=== PATIENT | female | born 1985 | race Caucasian/White ===

== ENCOUNTER 2016-07-25 16:08 | Emergency (ER) | payer OTHER ==
[2016-07-25 16:27] VITALS: BP 118/74; PULSE 101; TEMP 98.4; BMI 36.8
--- NOTE | 2016-07-25 16:32 | PDOC ---
History of Present Illness - General Chief Complaint: Pain Stated Complaint: LT FOOT BURNING SENSATION/PAIN Time Seen by Provider: 07/25/16 16:31 History Source: Patient Exam Limitations: No Limitations - History of Present Illness Initial Comments: CHIEF COMPLAINT: 30 y/o female patient with no significant PMH c/o left foot pain for the past 2 years ago. HISTORY OF PRESENT ILLNESS: The patient states her pain hurts mostly on her heel and arch, and it's the worst when she first steps down in the morning. A doctor used high frequency ultrasound a few years ago and it helped but she hasn 't been able to go back. She denies new injury but does admit she is on her feet a lot. Vital signs on arrival are within normal limits. REVIEW OF SYSTEMS: GENERAL/CONSTITUTIONAL: No fever/chills. No weakness. No weight change. HEAD, EYES, EARS, NOSE AND THROAT: No change in vision. No ear pain or discharge. No sore throat. MUSCULOSKELETAL: +left heel and arch pain. No neck or back pain. SKIN: No rash or easy bruising. NEUROLOGIC: No headache, vertigo, loss of consciousness, or loss of sensation. PHYSICAL EXAM: VITAL_SIGNS: within normal limits GENERAL_APPEARANCE: alert, cooperative, no obvious discomfort. MENTAL_STATUS: speech clear, oriented X 3, responds appropriately to questions. NEURO: motor intact and sensory intact in injured extremity. EXTREMITIES: 2+ dorsalis pedis pulse in left foot. Pain with palpation of bottom, medial border of left foot and along entire arch, consistent with plantar fasciitis. SKIN: warm, dry, good color. Past History - Past Medical History Allergies/Adverse Reactions: Allergies Allergy/AdvReac Type Severity Reaction Status Date / Time codeine Allergy Intermediate Vomiting Verified 07/25/16 16:24 Home Medications: Ambulatory Orders Vit No.130/Iron/FA [ Tablet] 1 each PO HS 10/18/15 Keflex 500 tablet PO BID 10/25/15 Ferrous Sulfate [Feosol] 325 mg PO BID #60 tablet 10/28/15 Ibuprofen [Motrin -] 600 mg PO QID PRN #28 tablet 10/28/15 Asthma: No Cancer: No Cardiac Disorders: No Diabetes: No HTN: No Seizures: No Thyroid Disease: No Other medical history: DENIES. - Psycho/Social/Smoking Cessation Hx Anxiety: No Suicidal Ideation: No Smoking History: Never smoked Have you smoked in the past 12 months: No Hx Alcohol Use: No Drug/Substance Use Hx: No Hx Substance Use Treatment: No *Physical Exam - Vital Signs Last Vital Signs Temp Pulse Resp BP Pulse Ox 98.4 F 101 H 19 118/74 97 07/25/16 16:25 07/25/16 16:25 07/25/16 16:25 07/25/16 16:25 07/25/16 16:25 Medical Decision Making - Medical Decision Making A/P: 30 y/o afebrile female with left plantar fasciitis. Suggested motrin for pain and rolling her foot along a frozen water bottle. Provided a referral to a closer orthopedic doctor and suggested she return for repeat high powered ultrasound treatments to her foot. The patient verbalizes understanding of all instructions, has no further questions and is awaiting discharge. *DC/Admit/Observation/Transfer Diagnosis at time of Disposition: Plantar fasciitis of left foot - Discharge Dispostion Disposition: HOME Condition at time of disposition: Good - Referrals Referrals: Jose Escalera MD [Staff Physician] - - Patient Instructions Printed Discharge Instructions: DI for Plantar Fasciitis Additional Instructions: Discharge Instructions: -Take Motrin every 6 hours for pain -Roll your foot on a frozen water bottle -Follow up with Dr. Escalera if symptoms persist
[2016-07-25] MEDS ORDERED: IBUPROFEN 600 MG TABLET (FP) PO ONE ×2 (17:00→17:05)
== END 2016-07-25 17:13 | disposition home or self-care (01) ==
LOC: JERFT 16:08
DX: M72.2 Plantar fascial fibromatosis (principal)
CPT/HCPCS: 84703; 99281-25

== ENCOUNTER 2016-09-18 15:03 | Emergency (ER) | payer OTHER ==
[2016-09-18 15:07] VITALS: BP 121/75; PULSE 88; TEMP 98; BMI 35.9
[2016-09-18] MEDS ORDERED: SODIUM CHLORIDE 0.9% 1000 ML INFUS.BAG IV ONE (15:28)
[2016-09-18] MEDS ORDERED: KETOROLAC TROMETHAMINE 30 MG/1 ML VIAL IVPUSH ONE (15:28)
[2016-09-18] MEDS ORDERED: METOCLOPRAMIDE HCL INJECTION 10 MG/2 ML VIAL IVPUSH ONE (15:28)
[2016-09-18] MEDS ORDERED: METOCLOPRAMIDE HCL INJECTION 10 MG/2 ML VIAL ONE (15:54)
[2016-09-18] MEDS ORDERED: diphenhydrAMINE HCL 25 MG CAPSULE (FP) PO ONE (15:55)
[2016-09-18] MEDS ORDERED: KETOROLAC TROMETHAMINE 30 MG/1 ML VIAL ONE (15:56)
--- NOTE | 2016-09-18 16:10 | PDOC ---
History of Present Illness - General Chief Complaint: Migraine Headache Stated Complaint: HEADACHES/NAUSIA Time Seen by Provider: 09/18/16 15:19 - History of Present Illness Initial Comments: 09/18/16 15:29 CHIEF COMPLAINT: headache HISTORY OF PRESENT ILLNESS: 30-year-old female with of migraines presents to ED with headache since this morning. Patient reports that she felt a gradual onset of her headache starting at 6:30 in the morning and has progressed becoming worse.. Patient reports that she is nauseous and has vomited 6 times. Patient reports the headache is across the front of her head and the back of her neck. Patient denies that this is the worst headache of her life and states it feels just like her previous migraines. No recent travel or sick contacts. PAST MEDICAL HISTORY: migraines FAMILY HISTORY: Denies SOCIAL HISTORY: Denies tobacco, alcohol, illicit drug use. SURGICAL HISTORY: Denies ALLERGIES: codeine REVIEW OF SYSTEMS General/Constitutional: Denies fever or chills. HEENT: Denies photophobia, phonophobia. Denies change in vision. Denies ear pain or discharge. Denies sore throat. Cardiovascular: Denies chest pain or shortness of breath. Respiratory: Denies cough, wheezing, or hemoptysis. Gastrointestinal: Nausea and vomiting today. Denies diarrhea or constipation. Musculoskeletal: Denies joint or muscle swelling or pain. Denies neck or back pain. Neurologic: Headache since this am. Denies vertigo, loss of consciousness, or loss of sensation. PHYSICAL EXAM General Appearance: Well-appearing, appropriately dressed. No apparent distress. HEENT: EOMI, PERRLA. Neck: Supple. Trachea midline. Respiratory/Chest: Lungs CTAB. Cardiovascular: RRR. S1, S2. Gastrointestinal/Abdominal: Normal bowel sounds. Abdomen soft, non-distended. No tenderness or rebound tenderness. No organomegaly, pulsatile mass, guarding , hernia, hepatomegaly, splenomegaly. Musculoskeletal/Extremities: Normal inspection. FROM of all extremities, normal capillary refill. Pelvis Stable. No CVA tenderness. No tenderness to extremities, pedal edema, swelling, erythema or deformity. Integumentary: Appropriate color, dry, warm. 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 Fully oriented, alert. Appropriate mood/affect. Motor strength 5/5. No appreciable EOM palsy, facial droop or sensory deficit. A&Ox3, follow commands, respond appropriately CN2-12: conjugate gaze, pupil round, equal and reactive to light. Visual field full to confrontation. EOMI without nystagmus, pursuit is smooth without saccade. Facial sensation and muscle activation intact bilaterally. Hearing intact bilaterally. Palate elevate symmetrically. Shoulder shrug and neck turn full strength. Tongue protrude midline. Motor: UE and LE strength 5/5 throughout bilaterally. Muscle tone and bulk normal. Cerebellar: Rapid-alternating movement with regular rhythm without bradykinesia. [id number] and [id number]-[id number] intact bilaterally without dysmetria or overshoot. Gait narrow based. No shuffling. Full hip flexion and knee flexion. Negative Romberg No involuntary movement noted. No pronator drift. No clonus. 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 - Surgical History Cholecystectomy: Yes - Psycho/Social/Smoking Cessation Hx Anxiety: No Suicidal Ideation: No Smoking History: Never smoked Have you smoked in the past 12 months: No Information on smoking cessation initiated: No Hx Alcohol Use: No Drug/Substance Use Hx: No Substance Use Type: None Hx Substance Use Treatment: No *Physical Exam - Vital Signs Last Vital Signs Temp Pulse Resp BP Pulse Ox 98.0 F 88 18 121/75 100 09/18/16 15:04 09/18/16 15:04 09/18/16 15:04 09/18/16 15:04 09/18/16 15:04 Medical Decision Making - Medical Decision Making 09/18/16 16:10 30-year-old female with of migraines presents to ED with headache since this morning. -IVF, Benadryl, Reglan, Toradol Patient reassessed. Advised patient to follow up with neurology for further evaluation of chronic migraines. *DC/Admit/Observation/Transfer Diagnosis at time of Disposition: Migraines Qualifiers: Migraine type: unspecified Status migrainosus presence: without status migrainosus Intractability: not intractable Qualified Code(s): G43.909 - Migraine, unspecified, not intractable, without status migrainosus - Discharge Dispostion Disposition: HOME Condition at time of disposition: Stable Admit: No - Prescriptions Prescriptions: Acetaminophen/Caffeine [Excedrin Tension Headache Cplt] 1 each PO BID PRN #20 tablet PRN Reason: Headache - Referrals Referrals: Claudio Madsen MD [Staff Physician] - - Patient Instructions Printed Discharge Instructions: DI for Migraine Additional Instructions: Please take medication as needed for relief of your headaches. Follow up with neurology for further evaluation of your recurrent headaches. If you experience any new headache, "thunderclap" headache, dizziness, change in vision , difficulty speaking, swallowing, or walking, or any new or worsening symptoms , please return to the ER.
== END 2016-09-18 17:24 | disposition home or self-care (01) ==
LOC: JER 15:03 → JERFT 15:03
PROC: 3E0333Z Introduction of Anti-inflammatory into Peripheral Vein, Percutaneous Approach (ICD-10-PCS; principal; 2016-09-18)
PROC: 3E033GC Introduction of Other Therapeutic Substance into Peripheral Vein, Percutaneous Approach (ICD-10-PCS; 2016-09-18)
PROC: 3E033GC Introduction of Other Therapeutic Substance into Peripheral Vein, Percutaneous Approach (ICD-10-PCS; 2016-09-18)
DX: G43.909 Migraine, unspecified, not intractable, without status migrainosus (principal)
CPT/HCPCS: 96374; 96375; 99281-25

== ENCOUNTER 2016-10-08 23:04 | Emergency (ER) | payer OTHER ==
[2016-10-08 23:10] VITALS: BP 120/53; PULSE 114; TEMP 97; BMI 36.3
--- NOTE | 2016-10-08 23:33 | PDOC ---
History of Present Illness - General Chief Complaint: Abscess Boil Stated Complaint: CYST ON THIGH Time Seen by Provider: 10/08/16 23:29 History Source: Patient Exam Limitations: No Limitations - History of Present Illness Initial Comments: 10/08/16 23:44 CC: LLE abscess Patient is a 30 y.o. female with no reported PMH who presents today with a 1 week h/o LLE abscess. Patient states she first noticed the abscess one week previous and it was the size of a dime. Patient states initially the abscess was not painful, however over the last 2-3 days she has felt pain her thighs brush together and she has noticed the abscess has grown in size. Patient denies any discharge from the abscess as well as any associated fever, chills, nausea or vomiting. Patient further notes she has a h/o abscesses in in groin area bilaterally and she usually pops the abscess without any difficulty. Timing/Duration: 1 week Past History - Past Medical History Allergies/Adverse Reactions: Allergies Allergy/AdvReac Type Severity Reaction Status Date / Time codeine Allergy Intermediate Vomiting Verified 10/08/16 23:10 Home Medications: Ambulatory Orders Clindamycin [Cleocin -] 300 mg PO TID #15 capsule 10/09/16 Asthma: No Cancer: No Cardiac Disorders: No Diabetes: No HTN: No Seizures: No Thyroid Disease: No - Surgical History Cholecystectomy: Yes - Psycho/Social/Smoking Cessation Hx Anxiety: No Suicidal Ideation: No Smoking History: Never smoked Have you smoked in the past 12 months: No Hx Alcohol Use: No Drug/Substance Use Hx: No Substance Use Type: None Hx Substance Use Treatment: No *Physical Exam - Vital Signs Last Vital Signs Temp Pulse Resp BP Pulse Ox 97 F L 114 H 20 120/53 99 10/08/16 23:08 10/08/16 23:08 10/08/16 23:08 10/08/16 23:08 10/08/16 23:08 - Physical Exam General Appearance: Yes: Appropriately Dressed, Obese HEENT: positive: EOMI, ISMAEL Neck: positive: Trachea midline, Supple Respiratory/Chest: positive: Lungs Clear, Normal Breath Sounds Cardiovascular: positive: Regular Rhythm, S1, S2, Tachycardia, Other Gastrointestinal/Abdominal: positive: Normal Bowel Sounds, Soft Integumentary: positive: Normal Color, Other (LLE fluctuant, indurated abscess approximately 4 cm diameter with surrounding erythema; warm to touch) 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 female with no significant PMH who presents today with a 1 week h/o of LLE abscess. Differential diagnosis includes cellulitis vs. folliculitis vs. abscess 2/2 to elevated BS (less likely as patient BS was 128 and patient reports her HbA1c was 5.2% in 08/2016). PLAN: 1. I&D of abscess with iodoform packing 2. Clindamycin (300 mg TID) x 5 days *DC/Admit/Observation/Transfer Diagnosis at time of Disposition: Abscess - Discharge Dispostion Admit: No - Prescriptions Prescriptions: Clindamycin [Cleocin -] 300 mg PO TID #15 capsule - Referrals Referrals: STAFF,NOT ON [Primary Care Provider] - - Patient Instructions Printed Discharge Instructions: DI for Incision and Drainage of a Skin Abscess Additional Instructions: Please return to the ED if you experience severe pain, fever or the size of the redness around your drained abscess increases. - Attestations Physician Attestion: 10/09/16 02:00 I, Dr. Vane Padilla, attest that this document has been prepared under my direction and personally reviewed by me in its entirety. I further attest, that it accurately reflects all work, treatment, procedures and medical decision -making performed by me.
--- NOTE | 2016-10-09 00:12 | PDOC ---
Attending Attestation - Resident Resident Name: RandyVane - ED Attending Attestation I have performed the following: I have examined & evaluated the patient, The case was reviewed & discussed with the resident, I agree w/resident's findings & plan, Exceptions are as noted - HPI HPI: 10/09/16 00:10 Agree with the resident's HPI as documented in the electronic medical record. - Physicial Exam PE: 10/09/16 00:10 Agree with the resident's physical examination as documented in the electronic medical record. - Medical Decision Making 10/09/16 00:10 30-year-old female with history of recurrent abscesses on the inner aspects of her thigh who presents the emergency department today with an abscess to her left medial upper thigh area with an area of surrounding cellulitis. The patient is afebrile and her fingerstick is 128. Plan: 1. Incision and drainage of abscess 2. Will discharge on antibiotics with MRSA coverage 3. Pain management 4. Observe and reevaluate
[2016-10-09] MEDS ORDERED: CLINDAMYCIN HCL 150 MG CAPSULE (FP) PO ONE (00:28)
[2016-10-09] MEDS ORDERED: CLINDAMYCIN HCL 150 MG CAPSULE (FP) ONE (00:32)
[2016-10-09] MEDS ORDERED: LIDOCAINE 1%/EPI 1:100000 (50 ML MULTI DOSE VIAL) ONE (00:34)
== END 2016-10-09 02:45 | disposition home or self-care (01) ==
LOC: JER 23:04
PROC: 0H9JXZZ Drainage of Left Upper Leg Skin, External Approach (ICD-10-PCS; principal; 2016-10-08)
DX: L02.416 Cutaneous abscess of left lower limb (principal)
CPT/HCPCS: 10060; 99281-25

== ENCOUNTER 2016-10-11 12:13 | Emergency (ER) | payer OTHER ==
[2016-10-11 12:18] VITALS: BP 91/60; PULSE 99; TEMP 98; BMI 36.3
--- NOTE | 2016-10-11 12:41 | PDOC ---
Suture Removal/Wound Check HPI - History of Present Illness History Source: Yes: Patient Treated at: [facility] ED - Previous ED Treatment Type of procedure performed on last visit: Yes: I&D of Abscess Tetanus Immunization: Yes: Up to Date <DmitriyEpi - Last Filed: 10/11/16 13:32> <Mingo Escobar - Last Filed: 10/12/16 08:17> - History of Present Illness Chief Complaint: Revisit,Wound Recheck Stated Complaint: REVISIT, FOLLOW UP Time Seen by Provider: 10/11/16 12:37 Past History - Past Medical History Surgical History: Yes: Cholecystectomy, Tonsillectomy - Immunization History Tetanus Status: Unknown - Social History Smoking Status: Never smoked <Epi Izaguirre - Last Filed: 10/11/16 13:32> <Mingo Escobar - Last Filed: 10/12/16 08:17> - Past Medical History Allergies/Adverse Reactions: Allergies codeine Allergy (Intermediate, Verified 10/11/16 12:18) Vomiting dizziness Home Medications: Ambulatory Orders Clindamycin [Cleocin -] 300 mg PO TID #15 capsule 10/09/16 Ibuprofen [Motrin -] 600 mg PO BID #10 tablet 10/09/16 Suture Removal/Wound Check PE - Physical Exam Laceration/Wound Check Symptoms: reports: Pain. denies: Fever, Chills, Redness Location of Laceration/Wound: left: Thigh (abscess to medial L thigh, packing removed, no further drainage, no e/o reaccumulation) <Epi Izaguirre Last Filed: 10/11/16 13:32> *Review of Systems - Review of Systems Constitutional: No: Chills, Fever <Epi Izaguirre Last Filed: 10/11/16 13:32> ED Treatment Course - Medications Given in the ED: ED Medications Discontinued Medications Generic Name Dose Route Start Last Admin Trade Name Freq PRN Reason Stop Dose Admin Ibuprofen 800 mg 10/11/16 13:26 10/11/16 13:35 Motrin - PO 10/11/16 13:27 800 mg ONCE ONE Administration <Mingo Escobar - Last Filed: 10/12/16 08:17> Medical Decision Making - Medical Decision Making 10/11/16 13:28 30 yo F, recurrent abscesses, s/p I&D to L thigh 2 days ago, currently on abx, no wound cx sent, here for wound check. States pain persists, worse when sitting and walking. Taking motrin which helps. No f/c. Pt well tim and stable w / abscess to L medial thigh w/ packing in place, no drainage on removal and no e /o re-accumulation. Dressing replaced and pt discharged to continue abx and to return to ED in 48 hrs given degree of pain today <Epi Izaguirre - Last Filed: 10/11/16 13:32> - Medical Decision Making 10/12/16 08:17 The patient was seen and evaluated in conjunction with RAMU Izaguirre under my direct supervision, ancillary studies were reviewed. I agree with the plan as outlined by RAMU Izaguirre . <Mingo Escobar - Last Filed: 10/12/16 08:17> *DC/Admit/Observation/Transfer <Epi Izaguirre - Last Filed: 10/11/16 13:32> <Mingo Escobar - Last Filed: 10/12/16 08:17> Diagnosis at time of Disposition: Wound check, abscess - Discharge Dispostion Disposition: HOME Condition at time of disposition: Good - Referrals Referrals: STAFF,NOT ON [Primary Care Provider] - - Patient Instructions Additional Instructions: Continue medications and return to ED in 2 days - Post Discharge Activity Work/School Note: Back to Work
[2016-10-11] MEDS ORDERED: IBUPROFEN 400 MG TABLET (FP) PO ONE ×2 (13:26→13:30)
== END 2016-10-11 13:51 | disposition home or self-care (01) ==
LOC: JERFT 12:13 → JER 12:13
DX: Z48.01 Encounter for change or removal of surgical wound dressing (principal)
CPT/HCPCS: 99283-25

== ENCOUNTER 2016-10-13 17:32 | Inpatient (IN) | payer OTHER ==
--- NOTE | 2016-10-13 20:13 | PDOC ---
*Physical Exam - Vital Signs Last Vital Signs Temp Pulse Resp BP Pulse Ox 97.9 F 74 18 108/75 100 10/13/16 17:46 10/13/16 17:46 10/13/16 17:46 10/13/16 17:46 10/13/16 17:46 ED Treatment Course - LABORATORY CBC & Chemistry Diagram: 10/15/16 05:50 10/15/16 05:50 Medical Decision Making - Medical Decision Making 10/13/16 20:13 agree with care from SOL Zhang *DC/Admit/Observation/Transfer Diagnosis at time of Disposition: Abscess of left lower extremity - Discharge Dispostion Disposition: HOME Condition at time of disposition: Improved - Prescriptions
[2016-10-13 21:15] LABS: BASOPHIL 0.7 % (0-2.0); MCH 27.7 pg (25.7-33.7); MCHC 32.2 g/dl (32.0-36.0); MEAN PLT VOLUME 9.4 fl (7.5-11.1); PLATELET COUNT 298 K/MM3 (134-434); RDW 13.4 % (11.6-15.6); WHITE BLOOD COUNT 8.8 K/mm3 (4.0-10.0)
--- NOTE | 2016-10-13 21:19 | PDOC ---
History of Present Illness - General Chief Complaint: Revisit,Wound Recheck Stated Complaint: wound check Time Seen by Provider: 10/13/16 18:15 - History of Present Illness Initial Comments: 10/13/16 21:09 CHIEF COMPLAINT: abscess, failed outpatient abx HISTORY OF PRESENT ILLNESS: 30 yo F returns to ED for abscess to L leg with pain radiating to L groin. Patient was seen on 5 days ago and had the abscess drained and discharged with po antibiotics. She was then seen two days later and "the stuff they put in there was taken out" but she was told to return in 2 days for a repeat evaluation. Patient continues to have pain to the abscess and states that she did have a fever two days ago. No recent travel or sick contacts. PAST MEDICAL HISTORY: Denies past medical history FAMILY HISTORY: Denies SOCIAL HISTORY: Denies tobacco, alcohol, illicit drug use. SURGICAL HISTORY: Denies ALLERGIES: codeine REVIEW OF SYSTEMS General/Constitutional: Denies fever or chills. Denies weakness, weight change. HEENT: Denies change in vision. Denies ear pain or discharge. Denies sore throat. Cardiovascular: Denies chest pain or shortness of breath. Respiratory: Denies cough, wheezing, or hemoptysis. Gastrointestinal: Denies nausea, vomiting, diarrhea or constipation. Denies rectal bleeding. Genitourinary: Denies dysuria, frequency, or change in urination. Musculoskeletal: Denies joint or muscle swelling or pain. Denies neck or back pain. Skin: "I still have the bump there, and I can't really close my legs because it hurts." Denies rash or easy bruising. Neurologic: Denies headache, vertigo, loss of consciousness, or loss of sensation. PHYSICAL EXAM General Appearance: Well-appearing, appropriately dressed. No apparent distress , no intoxication. HEENT: EOMI, PERRLA, normal ENT inspection, normal voice, TMs normal, pharynx normal. No conjunctival pallor. No photophobia, scleral icterus. Neck: Supple. Trachea midline. No tenderness, rigidity, carotid bruit, stridor , lymphadenopathy, or thyromegaly. Respiratory/Chest: Lungs CTAB. No shortness of breath, chest tenderness, respiratory distress, accessory muscle use. No crackles, rales, rhonchi, stridor , wheezing, dullness Cardiovascular: RRR. S1, S2. No JVD, murmur, bradycardia, tachycardia. Vascular Pulses: Dorsalis-Pedis (R): 2+, Dorsalis-Pedis (L): 2+ Gastrointestinal/Abdominal: Normal bowel sounds. Abdomen soft, non-distended. No tenderness or rebound tenderness. No organomegaly, pulsatile mass, guarding , hernia, hepatomegaly, splenomegaly. Lymphatic: No adenopathy, tenderness. Musculoskeletal/Extremities: Normal inspection. FROM of all extremities, normal capillary refill. Pelvis Stable. No CVA tenderness. No tenderness to extremities, pedal edema, swelling, erythema or deformity. Integumentary: 4cm x 4 cm indurated abscess to L medial thigh with open wound from previous I&D. Appropriate color, dry, warm. No cyanosis, erythema, jaundice or rash Neurologic: information security II-XII intact. Fully oriented, alert. Appropriate mood/affect. Motor strength 5/5. No appreciable EOM palsy, facial droop or sensory deficit. Past History - Past Medical History Allergies/Adverse Reactions: Allergies Allergy/AdvReac Type Severity Reaction Status Date / Time codeine Allergy Intermediate Vomiting Verified 10/13/16 17:48 Home Medications: Ambulatory Orders Clindamycin [Cleocin -] 300 mg PO TID #15 capsule 10/09/16 Ibuprofen [Motrin -] 600 mg PO BID #10 tablet 10/09/16 Asthma: No Cancer: No Cardiac Disorders: No Diabetes: No HTN: No Seizures: No Thyroid Disease: No - Surgical History Cholecystectomy: Yes - Psycho/Social/Smoking Cessation Hx Anxiety: No Suicidal Ideation: No Smoking History: Never smoked Have you smoked in the past 12 months: No Information on smoking cessation initiated: No Hx Alcohol Use: No Drug/Substance Use Hx: No Substance Use Type: None Hx Substance Use Treatment: No *Physical Exam - Vital Signs Last Vital Signs Temp Pulse Resp BP Pulse Ox 97.9 F 74 18 108/75 100 10/13/16 17:46 10/13/16 17:46 10/13/16 17:46 10/13/16 17:46 10/13/16 17:46 ED Treatment Course - LABORATORY CBC & Chemistry Diagram: 10/13/16 20:45 10/13/16 20:45 Medical Decision Making - Medical Decision Making 10/13/16 21:18 30 yo F returns to ED for persistent abscess to L leg with pain radiating to L groin s/p I&D 4 days ago and failed outpatient abx. -CBC, CMP, lactic acid 10/13/16 22:08 Discussed case with on-call surgeon Trell who agrees to inpatient admission for surgical I&D tomorrow. Discussed case with hospitalist resident Sanjay, patient to be admitting to med/ surg. -IV Clindamycin *DC/Admit/Observation/Transfer Diagnosis at time of Disposition: Abscess of left lower extremity - Discharge Dispostion Admit: Yes
[2016-10-13 21:25] LABS: INR 1.1 (0.82-1.09); PROTHROMBIN TIME (PATIENT) 12.1 SEC (9.98-11.88)
[2016-10-13 21:36] LABS: ALBUMIN 3.9 g/dl (3.4-5.0); ANION GAP 7 (8-16); BILIRUBIN,TOTAL 0.4 mg/dL (0.2-1.0); CALCIUM 9.7 mg/dL (8.5-10.1); CO2 29 mmol/L (21-32); CREATININE 0.5 mg/dL (0.55-1.02); GLUCOSE,RANDOM 77 mg/dL (74-106); SGOT/AST 14 U/L (15-37); SGPT/ALT 24 U/L (12-78); TOT PROT 7.6 g/dl (6.4-8.2)
[2016-10-13 21:37] LABS: ALK PHOS 87 U/L (45-117)
[2016-10-13] MEDS ORDERED: CLINDAMYCIN 600MG PREMIX IVPB 50 ML IVPB ONE ×2 (22:09→22:22)
--- NOTE | 2016-10-13 22:09 | PN ---
Teaching Attending Note Name of Resident: Mary Grace ATTENDING PHYSICIAN STATEMENT I saw and evaluated the patient. I reviewed the resident's note and discussed the case with the resident. I agree with the resident's findings and plan as documented. SUBJECTIVE: 30 yo F who presents to ED with L. leg abscess with pain radiating to r. groin. Pt. was recently in ED for I&D of same abscess 5 days ago. Notes that the abscess is bigger and painful upon palpation. Denies any fevers or chills. OBJECTIVE: Physical: VS: Vital Signs Period Temp Pulse Resp BP Sys/Bae Pulse Ox Last 24 Hr 97.9 F 74 18 108/75 100 GEN: NAD, Resting in bed HEENT: NCAT, PERRL CARD: RRR S1, S2 RESP: CTAB ABD: BSX4, NTD to palpation EXT: L. Thigh wih 5X8 indurated area in upper thigh with no drainage and fluctuance on palpation, CBCD WBC 8.8 K/mm3 (4.0-10.0) 10/13/16 20:45 RBC 4.24 M/mm3 (3.60-5.2) D 10/13/16 20:45 Hgb 11.8 GM/dL (10.7-15.3) D 10/13/16 20:45 Hct 36.5 % (32.4-45.2) D 10/13/16 20:45 MCV 86.0 fl (80-96) 10/13/16 20:45 MCHC 32.2 g/dl (32.0-36.0) 10/13/16 20:45 RDW 13.4 % (11.6-15.6) 10/13/16 20:45 Plt Count 298 K/MM3 (134-434) D 10/13/16 20:45 MPV 9.4 fl (7.5-11.1) 10/13/16 20:45 CMP Sodium 137 mmol/L (136-145) 10/13/16 20:45 Potassium 4.3 mmol/L (3.5-5.1) 10/13/16 20:45 Chloride 101 mmol/L (98-107) 10/13/16 20:45 Carbon Dioxide 29 mmol/L (21-32) D 10/13/16 20:45 Anion Gap 7 (8-16) L 10/13/16 20:45 BUN 11 mg/dL (7-18) D 10/13/16 20:45 Creatinine 0.5 mg/dL (0.55-1.02) L 10/13/16 20:45 Creat Clearance w eGFR > 60 (>60) 10/13/16 20:45 Random Glucose 77 mg/dL (74-106) D 10/13/16 20:45 Calcium 9.7 mg/dL (8.5-10.1) 10/13/16 20:45 Total Bilirubin 0.4 mg/dL (0.2-1.0) 10/13/16 20:45 AST 14 U/L (15-37) L D 10/13/16 20:45 ALT 24 U/L (12-78) D 10/13/16 20:45 Alkaline Phosphatase 87 U/L (45-117) D 10/13/16 20:45 Total Protein 7.6 g/dl (6.4-8.2) 10/13/16 20:45 Albumin 3.9 g/dl (3.4-5.0) 10/13/16 20:45 ASSESSMENT AND PLAN: 30 F with no pmhx presents with recurrent l. thigh abscess 1.) L.Thigh Abscess - NPO - IVF - C/W Clinda IV - Type and Screen - Coags - CT LE for abscess eval - Sx. Consulted 2.) DVT Ppx - Low Risk- Ambulate Place in Med- Sx
--- NOTE | 2016-10-13 22:13 | HP ---
HISTORY OF PRESENT ILLNESS: Patient is a 30 year old female with no significant PMHx who presents for left leg abscess that was drained 5 days ago from the ED and then discharged with PO antibiotics. Patient then returned two days after the I&D to remove the packing and was told to return two days later for re-evaluation. Patient returns today and states the pain has progressively worsened and is now radiating to the left groin associated with subjective fevers. Patient otherwise denies chills, nausea, vomiting, abdominal pain, chest pain, palpitations, shortness of breath PHYSICAL EXAMINATION Vital Signs - 24 hr 10/13/16 17:46 Temperature 97.9 F Pulse Rate 74 Respiratory 18 Rate Blood Pressure 108/75 O2 Sat by Pulse 100 Oximetry (%) GENERAL: Awake, alert, and fully oriented, in no acute distress. LUNGS: Breath sounds equal, clear to auscultation bilaterally. No wheezes, and no crackles. No accessory muscle use. HEART: Regular rate and rhythm, normal S1 and S2 without murmur, rub or gallop. ABDOMEN: Soft, nontender, not distended, normoactive bowel sounds, no guarding, no rebound, no masses. No hepatomegaly or splenomegaly. LOWER EXTREMITIES: 5X8cm medial upper left thigh open abscess from previous I& D with surrounding induration but no fluctuance. No peripheral edema. Laboratory Results - last 24 hr 10/13/16 10/13/16 10/13/16 20:45 20:45 20:46 WBC 8.8 RBC 4.24 D Hgb 11.8 D Hct 36.5 D MCV 86.0 MCH 27.7 MCHC 32.2 RDW 13.4 Plt Count 298 D MPV 9.4 Neutrophils % 62.0 Lymphocytes % 29.3 Monocytes % 7.0 Eosinophils % 1.0 Basophils % 0.7 Sodium 137 Potassium 4.3 Chloride 101 Carbon Dioxide 29 D Anion Gap 7 L BUN 11 D Creatinine 0.5 L Creat Clearance w eGFR > 60 Random Glucose 77 D Lactic Acid 0.7 Calcium 9.7 Total Bilirubin 0.4 AST 14 L D ALT 24 D Alkaline Phosphatase 87 D Total Protein 7.6 Albumin 3.9 ASSESSMENT/PLAN: Patient is a 30 year old female who presents with recurrent medial left thigh abscess and failed outpatient antibiotics. Patient admitted for surgical I&D and further monitoring and management. Left thigh Abscess -On PO Clindamycin as outpatient. Will begin IV Clindamycin -IV fluids -Morphine for pain control -Type and Screen, Coags -CT of lower extremity -NPO -Surgery consult placed and will do surgical I&D F/E/N- IV Fluids, Electrolytes wnl. NPO after midnight Prophylaxis- Low risk. EAM. SCD's for DVT Disposition- Full code. Admit to med/surg for possible surgical I&D in the morning Case discussed with medical team and attending. Full H&P to follow Visit type - Emergency Visit Emergency Visit: Yes ED Registration Date: 10/13/16 Care time: The patient presented to the Emergency Department on the above date and was hospitalized for further evaluation of their emergent condition. - New Patient This patient is new to me today: Yes Date on this admission: 10/13/16 - Critical Care Critical Care patient: No
--- NOTE | 2016-10-13 22:46 | HP ---
CHIEF COMPLAINT: Left thigh abscess HISTORY OF PRESENT ILLNESS: 30yo woman with history of L thigh abscess on Clindamycin s/p I&D with packing 5days ago (10/08) and unpacking 2days (10/11) who presents with persistent indurated abscess. The pt first presented to the ED on 10/08 after a week of noticing a developing boil in the medial aspect of her L upper thigh. The abscess was drained, packed, and told to return to the ED in two days. Four days ago (10/09) she developed a fever with Tmax 102, and continued to have pain over the I&D site radiating to her L groin with a severity of 8/10. She returned to the ED two days ago (10/11), the packing was removed and she was told to follow-up again to the ED in two days. She returned to the ED this evening, and the abscess was found to be larger and tender to palpation. No fevers since the . Denies chills, n/v, dysuria and hematuria. No myalgia or arthralgia. ER course was notable for: (1) Afbrile, no leukocytosis Recent Travel: none PAST MEDICAL HISTORY: none PAST SURGICAL HISTORY: Cholecystectomy - 2years ago Tonsillectomy Social History: Smoking: denies Alcohol: none Drugs: none Family History: non-contributory Allergies: codeine Allergy (Intermediate, Verified 10/13/16 17:48) Vomiting dizziness HOME MEDICATIONS: Home Medications Medication Instructions Recorded Clindamycin [Cleocin -] 300 mg PO TID #15 capsule 10/09/16 Ibuprofen [Motrin -] 600 mg PO BID #10 tablet 10/09/16 REVIEW OF SYSTEMS CONSTITUTIONAL: +fever, chills, diaphoresis Absent: generalized weakness, malaise, loss of appetite, weight change HEENT: Absent: rhinorrhea, nasal congestion, throat pain, throat swelling, difficulty swallowing, mouth swelling, ear pain, eye pain, visual changes CARDIOVASCULAR: Absent: chest pain, syncope, palpitations, irregular heart rate, lightheadedness , peripheral edema RESPIRATORY: Absent: cough, shortness of breath, dyspnea with exertion, orthopnea, wheezing, stridor, hemoptysis GASTROINTESTINAL: Absent: abdominal pain, abdominal distension, nausea, vomiting, diarrhea, constipation, melena, hematochezia GENITOURINARY: Absent: dysuria, frequency, urgency, hesitancy, hematuria, flank pain, genital pain MUSCULOSKELETAL: Absent: myalgia, arthralgia, joint swelling, back pain, neck pain SKIN: +abscess L upper medial thigh, pea-size indurated abscess on R medial thigh Absent: rash, itching, pallor HEMATOLOGIC/IMMUNOLOGIC: Absent: easy bleeding, easy bruising, lymphadenopathy, frequent infections ENDOCRINE: Absent: unexplained weight gain, unexplained weight loss, heat intolerance, cold intolerance NEUROLOGIC: Absent: headache, focal weakness or paresthesias, dizziness, unsteady gait, seizure, mental status changes, bladder or bowel incontinence PSYCHIATRIC: Absent: anxiety, depression, suicidal or homicidal ideation, hallucinations. PHYSICAL EXAMINATION Vital Signs - 24 hr 10/13/16 17:46 Temperature 97.9 F Pulse Rate 74 Respiratory 18 Rate Blood Pressure 108/75 O2 Sat by Pulse 100 Oximetry (%) GENERAL: Awake, alert, and fully oriented, in no acute distress. HEAD: Normal with no signs of trauma. EYES: PERRLA, EOMI, sclera anicteric, conjunctiva clear EARS, NOSE, THROAT: Oropharynx clear without exudates. Moist mucous membranes. NECK: supple, no cervical LAD LUNGS: CTAB, mo wheezes, and no crackles HEART: Regular rate and rhythm, normal S1 and S2 without murmur, rub or gallop. ABDOMEN: obese, soft, not distended, normoactive bowel sounds, RUQ tenderness to deep palpations. No hepatomegaly or splenomegaly. : No suprapubic, no CVA tenderness. LOWER EXTREMITIES: 5X8cm medial upper L thigh open abscess from prior I&D with surrounding induration that is non-draining without erythema or fluctuance. Pea- size tender, indurated abscess with no erythema or fluctuance on medial upper R thigh. No pretibial or pedal edema bilaterally NEUROLOGICAL: Grossly intact, not formally tested. PSYCHIATRIC: Cooperative. Good eye contact. Appropriate mood and affect. SKIN: Warm, dry, normal turgor Laboratory Results - last 24 hr 10/13/16 10/13/16 10/13/16 20:45 20:45 20:45 WBC 8.8 RBC 4.24 D Hgb 11.8 D Hct 36.5 D MCV 86.0 MCH 27.7 MCHC 32.2 RDW 13.4 Plt Count 298 D MPV 9.4 Neutrophils % 62.0 Lymphocytes % 29.3 Monocytes % 7.0 Eosinophils % 1.0 Basophils % 0.7 INR 1.10 Sodium 137 Potassium 4.3 Chloride 101 Carbon Dioxide 29 D Anion Gap 7 L BUN 11 D Creatinine 0.5 L Creat Clearance w eGFR > 60 Random Glucose 77 D Lactic Acid Calcium 9.7 Total Bilirubin 0.4 AST 14 L D ALT 24 D Alkaline Phosphatase 87 D Total Protein 7.6 Albumin 3.9 10/13/2016 20:46 Lactic Acid 0.7 Imaging: CT of L leg pending ASSESSMENT/PLAN: 30yo woman with tender, enlarging, and indurated abscess on L medial thigh s/p I &D 5days ago on Clindamycin who is admitted for surgical I&D. #Left medial thigh abscess -Switch from PO to IV Clindamycin 900mg Q8hr -CT of abscess -Surgery consulted (Dr. Cai); surgical I&D planned for tomorrow -NPO -T&S and Coags ordered for AM #F/E/N -NS @ 100cc/hr -Electrolytes wnl -NPO #DVT prophylaxis -Low risk --> encourage ambulation #Dispo -Admit to Med/Surg -Full Code d/w team Claudia Kebede MD PGY-1 Visit type - Emergency Visit Emergency Visit: Yes ED Registration Date: 10/13/16 Care time: The patient presented to the Emergency Department on the above date and was hospitalized for further evaluation of their emergent condition. - New Patient This patient is new to me today: Yes Date on this admission: 10/14/16 - Critical Care Critical Care patient: No
[2016-10-14] MEDS ORDERED: SODIUM CHLORIDE 1,000 ML IV SCH ×2 (00:45→23:27)
[2016-10-14 01:10] VITALS: BMI 35.5
[2016-10-14 07:43] LABS: INR 1.15 (0.82-1.09); PROTHROMBIN TIME (PATIENT) 12.7 SEC (9.98-11.88)
[2016-10-14] MEDS: CLINDAMYCIN 900 MG PREMIX IVPB 50 ML IVPB SCH ×3 (09:01→19:03)
--- NOTE | 2016-10-14 13:44 | PN ---
Teaching Attending Note Name of Resident: Kali Santillan ATTENDING PHYSICIAN STATEMENT I saw and evaluated the patient. I reviewed the resident's note and discussed the case with the resident. I agree with the resident's findings and plan as documented. SUBJECTIVE: Patient complains of pain in left thigh radiating to left groin. OBJECTIVE: Vital Signs Period Temp Pulse Resp BP Sys/Bae Pulse Ox Last 24 Hr 97.9 F-98.5 F 70-80 18-20 100-116/49-75 100 HEART: S1S2, RRR LUNGS: Clear ABDOMEN: Obese, soft, non-tender, non-distended, normal BS EXTREMITIES: No edema. Left thigh I&D site with no drainage and no erythema. There is surrounding induration and tenderness ASSESSMENT AND PLAN: This is a 30-year-old woman with no past medical history who presented to the ER with left thigh pain after I&D of a left thigh abscess. 1. Left medial thigh abscess - s/p I&D in ER 10/08 - No culture was sent - Packing removed 10/11 - Failed outpatient oral Clindamycin - On IV Clindamycin - Awaiting surgery evaluation 2. Obesity with BMI 35.5
--- NOTE | 2016-10-14 14:17 | PN ---
Progress Note (short form) - Note Progress Note: surgery pt seen and examined. full consult dictated. 30 f s/p i&d of left inner thigh abscess developed induration after packing removed. Pt admitted for worsening pain and possible remaining abscess. on exam 3 cm area of induration around incision without fluctuance. Plan- induration at previous incision site. clinically no abscess. ct shows no abscess. cont iv abx. warm compress. if no improvement will consider incision but doubt therapeutic at this point.
--- NOTE | 2016-10-14 17:04 | PN ---
Physical Exam: SUBJECTIVE: Patient seen and examined No acute events overnight. Patient has pain in left thigh radiating to groin. OBJECTIVE: Vital Signs Period Temp Pulse Resp BP Sys/Bae Pulse Ox Last 24 Hr 97.9 F-98.5 F 70-80 18-20 100-116/49-70 GENERAL: Awake, alert, and fully oriented, in no acute distress. LUNGS: Breath sounds equal, clear to auscultation bilaterally. No wheezes, and no crackles. No accessory muscle use. HEART: Regular rate and rhythm, normal S1 and S2 without murmur, rub or gallop. ABDOMEN: Soft, nontender, not distended, normoactive bowel sounds, no guarding, no rebound, no masses. No hepatomegaly or splenomegaly. LOWER EXTREMITIES: 5X8cm medial upper left thigh open abscess from previous I& D with surrounding induration and tenderness. No peripheral edema. Laboratory Results - last 24 hr 10/14/16 10/14/16 10/14/16 00:12 06:00 06:00 INR 1.15 H Serum , Qual Negative Blood Type AB POSITIVE Antibody Screen Negative Active Medications Generic Name Dose Route Start Last Admin Trade Name Freq PRN Reason Stop Dose Admin Clindamycin Phosphate 50 mls @ 100 mls/hr 10/14/16 09:00 10/14/16 09:07 Cleocin 900 Mg Premix Ivpb - IVPB Not Given Q8H-IV SLIM Sodium Chloride 1,000 mls @ 100 mls/hr 10/14/16 00:45 10/14/16 01:48 Normal Saline - IV 100 mls/hr ASDIR SLIM Administration ASSESSMENT/PLAN: 30yo woman with tender, enlarging, and indurated abscess on L medial thigh s/p I &D 5days ago on Clindamycin who wass admitted for surgical I&D. #Left medial thigh abscess -Continue IV Clindamycin 900mg Q8hr -CT of abscess shows no drainable abscess -Surgery recommends continuing abx and warm compresses -ID consulted #F/E/N -NS @ 100cc/hr -Electrolytes wnl -Regular diet #DVT prophylaxis -Low risk --> encourage ambulation Visit type - Emergency Visit Emergency Visit: No - New Patient This patient is new to me today: Yes Date on this admission: 10/14/16 - Critical Care Critical Care patient: No
[2016-10-14] MEDS ORDERED: ACETAMINOPHEN 325 MG TABLET (FP) PO ONE (23:25)
[2016-10-15] MEDS ORDERED: ACETAMINOPHEN 325 MG TABLET (FP) ONE (01:30)
[2016-10-15] MEDS: CLINDAMYCIN 900 MG PREMIX IVPB 50 ML IVPB SCH ×2 (01:31→09:14)
[2016-10-15 07:24] LABS: INR 1.14 (0.82-1.09); PROTHROMBIN TIME (PATIENT) 12.6 SEC (9.98-11.88)
[2016-10-15 07:32] LABS: ANION GAP 6 (8-16); CALCIUM 8.8 mg/dL (8.5-10.1); CO2 27 mmol/L (21-32); CREATININE 0.6 mg/dL (0.55-1.02); GLUCOSE,RANDOM 82 mg/dL (74-106)
[2016-10-15 07:33] LABS: BASOPHIL 0.7 % (0-2.0); EOSINOPHIL 1.5 % (0-4.5); MCH 28.4 pg (25.7-33.7); MCHC 32.8 g/dl (32.0-36.0); MEAN CELL VOLUME 86.5 fl (80-96); MEAN PLT VOLUME 9.1 fl (7.5-11.1); NEUTROPHILS 57.9 % (42.8-82.8); PLATELET COUNT 279 K/MM3 (134-434); RDW 13.5 % (11.6-15.6)
--- NOTE | 2016-10-15 08:15 | CONS ---
DATE OF CONSULTATION: 10/14/2016 REASON FOR CONSULTATION: Left inner thigh abscess. This is an emergency room consultation at request of the emergency room physician. The patient was subsequently admitted to the floor and is seen and examined on the floor. BRIEF HISTORY: This is a 30-year-old female who recently had an incision and drainage of a left inner thigh abscess done in the emergency room. She was discharged home with packing. When her packing was removed, she noticed an area of induration. The pain worsened, and she returned to the emergency room and was admitted for possible recurrence of her abscess. Request was made for surgical evaluation. She had a CAT scan of her leg, which showed no evidence of abscess, and she was started on clindamycin antibiotic and awaited surgical evaluation. Patient denies fever. PAST MEDICAL HISTORY: Negative. PAST SURGICAL HISTORY: Includes a cholecystectomy and a tonsillectomy. SOCIAL HISTORY: Negative for alcohol. Negative for tobacco. FAMILY HISTORY: Negative for malignancy in the immediate family. ALLERGIES: She has allergies to CODEINE. MEDICATIONS: She takes no medications except for she was on oral clindamycin. REVIEW OF SYSTEMS: General: Denies fatigue or malaise. Cardiac: Denies chest pain or palpitations. Respiratory: Denies shortness of breath or wheeze. Gastrointestinal: No nausea or vomiting. Genitourinary: Denies dysuria. Musculoskeletal: Denies joint pain. Psychiatric: Denies anxiety. Skin: Admits to a painful lump in her left inner thigh. PHYSICAL EXAMINATION: General: This is an obese, 30-year-old female in no distress. Vital Signs: She is afebrile, has been since admission. HEENT: Her head is normocephalic. Her sclerae are anicteric. Neck: Supple. Chest: Clear. Abdomen: Soft. Extremities: She has an incision noted in her left medial thigh. It is approximately 2 cm in length. Around this area is an indurated amount of skin and underlying fat. There are no cellulitic changes. The area of induration is approximately 4 cm in size. Remainder of her extremities is unremarkable. LABORATORY DATA: On review of her laboratory, her white blood cell count is normal at 8.8. There is no shift. Her chemistries are unremarkable. IMAGING: Her imaging is as in HPI. ASSESSMENT: A 30-year-old female status post incision and drainage of an abscess, now with an area of induration and pain. CAT scan shows no accumulation of abscess. My exam is not consistent with abscess but more an area of induration. At this point, I believe that incision and drainage would not be therapeutic. I would recommend continue IV antibiotics, recommend warm compresses. If the area becomes fluctuant or if it increases in size, at that point, would consider incision and drainage. Currently, I suspect any incision and drainage would not be therapeutic. DO BRINDA PAEZ/[id number]
--- NOTE | 2016-10-15 08:46 | PN ---
Progress Note (short form) - Note Progress Note: ID Consult dictated 30 year old obese female admitted with L thigh abscess. Seen in [facility] ER 10/08/16 where I&D performed. No culture sent! Discharged on po clindamycin. Now with increased thigh pain. S/P I&D soft tissue abscess L thigh CT no collection. Afebrile with normal WBC. BC (-) Substitute po Bactrim DS bid x 7d Outpatient surgical follow up
[2016-10-15 09:43] VITALS: BP 115/72; PULSE 89; TEMP 97.9
--- NOTE | 2016-10-15 11:35 | CONS ---
INFECTIOUS DISEASE CONSULTATION DATE OF CONSULTATION: DATE OF DICTATION: 10/15/2016 HISTORY OF PRESENT ILLNESS: The patient is a 30-year-old, previously healthy female evaluated for left thigh abscess. She had presented to the emergency room on October 08, 2016, with a 1-week history of worsening left medial thigh soft tissue swelling. She noted a small pimple in that area approximately a week prior. She had previously developed similar lesions and had been able to express pus with resolution. This time, however, the area became increasingly large and tender. She was evaluated in the emergency room where she was diagnosed with a soft tissue abscess. An incision and drainage was performed. No culture was sent. She was discharged home on clindamycin orally. She returned 2 days later for a wound check, where packing was removed. Despite the oral clindamycin, she had persistent pain to the point where she was unable to walk. She was re-evaluated in the emergency room where she is admitted. She was started on clindamycin intravenously. She complains of localized pain. She complains of inability to walk secondary to pain when her thighs rub together. She did have low-grade fever prior to admission; however, has been afebrile here. She denies prior history of serious soft tissue infection requiring hospitalization, denies history of MRSA. No insect or animal bites or scratches. PAST MEDICAL HISTORY: Negative. She is nondiabetic. PAST SURGICAL HISTORY: Status post cholecystectomy and tonsillectomy. ALLERGIES: CODEINE. PRESENT MEDICATIONS: Include clindamycin and Tylenol. SOCIAL HISTORY: Nonsmoker, nondrinker. SYSTEMS REVIEW: Neurologic: No loss of consciousness, seizure activity, focal weakness. Cardiac: Negative chest pain or palpitations. Respiratory: Negative cough or sputum production. Gastrointestinal: Negative vomiting or diarrhea. Genitourinary: Negative for urinary tract infection. LABORATORY DATA: White count 7.0, hematocrit 36.1, platelet count 279. BUN 10, creatinine 0.6. Blood culture is negative. No wound culture sent. PHYSICAL EXAMINATION: General: She is awake and alert. She is not acutely toxic appearing. Vital Signs: Temperature 97.7; blood pressure 101/59; pulse 78, regular; respirations 18 per minute. HEENT: Sclerae anicteric. Heart: Sounds S1, S2. Lungs: Clear. Abdomen: Obese, soft, nontender. Extremities: Examination of the left thigh: There is a superficial incisional wound which is dry. There is no expressible drainage. There is surrounding induration, approximately 4 x 2 cm. There is no fluctuance. No expressible pus. No lymphangitis. There is a small pustule on the right medial thigh; no fluctuance or expressible pus. Extremities negative for edema. IMPRESSION: Status post incision and drainage of soft tissue abscess, left thigh. Substitute oral Bactrim Double Strength b.i.d. for 7 days. At this time, there is no clinical or radiographic evidence of a drainable collection. Outpatient surgical followup. Thank you for the kind referral. AZEEM CONNER M.D. [id number]
--- NOTE | 2016-10-15 13:28 | DS ---
Physical Exam: SUBJECTIVE: Patient seen and examined. pain is improved. only on ambulation. no drainage from site. denies Cp, SOB,fever, chills, N/V/C/D/ OBJECTIVE: Vital Signs Period Temp Pulse Resp BP Sys/Bae Pulse Ox Last 24 Hr 97.7 F-98.5 F 78-93 18-20 100-115/55-72 98 PHYSICAL EXAM GENERAL: The patient is awake, alert, and fully oriented, in no acute distress. HEAD: Normal with no signs of trauma. EYES: PERRL, extraocular movements intact, sclera anicteric, conjunctiva clear. ENT: Ears normal, nares patent, oropharynx clear without exudates, moist mucous membranes. NECK: Trachea midline, full range of motion, supple. LUNGS: Breath sounds equal, clear to auscultation bilaterally, no wheezes, no crackles, no accessory muscle use. HEART: Regular rate and rhythm, S1, S2 without murmur, rub or gallop. ABDOMEN: Soft, nontender, nondistended, normoactive bowel sounds, no guarding, no rebound, no hepatosplenomegaly, no masses. EXTREMITIES: 2+ pulses, warm, well-perfused, no edema. NEUROLOGICAL: Cranial nerves II through XII grossly intact. Normal speech, gait not observed. PSYCH: Normal mood, normal affect. SKIN: L medial thigh with slight induration surrounding <1cm flat ulcer. minimal drainage on dressing. no warmth. mildly tender. Warm, dry, normal turgor, no rashes or lesions noted. LABS Laboratory Results - last 24 hr 10/15/16 10/15/16 10/15/16 05:50 05:50 05:50 WBC 7.0 RBC 4.17 Hgb 11.8 Hct 36.1 MCV 86.5 MCH 28.4 MCHC 32.8 RDW 13.5 Plt Count 279 MPV 9.1 Neutrophils % 57.9 Lymphocytes % 32.0 Monocytes % 7.9 Eosinophils % 1.5 Basophils % 0.7 INR 1.14 Sodium 137 Potassium 4.6 Chloride 104 Carbon Dioxide 27 Anion Gap 6 L BUN 10 Creatinine 0.6 Random Glucose 82 Calcium 8.8 HOSPITAL COURSE: Date of Admission:10/13/16 Date of Discharge: 10/15/16 Admitting diagnosis: L medial thigh cellulitis Pre hospital course 30yo woman with history of L thigh abscess on Clindamycin s/p I&D with packing 5days ago (10/08) and unpacking 2days (10/11) who presents with persistent indurated abscess. The pt first presented to the ED on 10/08 after a week of noticing a developing boil in the medial aspect of her L upper thigh. The abscess was drained, packed, and told to return to the ED in two days. Four days ago (10/09) she developed a fever with Tmax 102, and continued to have pain over the I&D site radiating to her L groin with a severity of 8/10. She returned to the ED two days ago (10/11), the packing was removed and she was told to follow-up again to the ED in two days. She returned to the ED this evening, and the abscess was found to be larger and tender to palpation. No fevers since the . Denies chills, n/v, dysuria and hematuria. No myalgia or arthralgia. Subsequent hospital course Admitted to medicine. evaluated by ID and surgery. started on IV clindamycin. CT done and no abscess formation noted. pt remained afebrile with no leukocytosis. pain controlled with tylenol. abx switched to bactrim DS for 7 days. counseled pt on need to f/u with surgeon once abx are completed to assess for resolution of cellulitis. verbalized understanding and agreement with plan. Minutes to complete discharge: 90 Discharge Summary Reason For Visit: ABCESS Current Active Problems Cellulitis of left thigh (Acute) Condition: Improved - Instructions Diet, Activity, Other Instructions: You were admitted and treated for cellulitis of your thigh. CT scan for abscess was done and was not seen at this time. Take antibiotic until completed, even if your symptoms resolve. Take your first dose tonight and then take for 7 days. Keep the area clean and wash daily with soap and water. put clean bandage daily. Take tylenol as needed for pain. Follow up with surgeon once you complete the antibiotics. Follow up with your primary care doctor in 1 week If you develop high fevers (temp >101) or develop purulent drainage from the site then return to the ER. Referrals: Sincere Cai MD [Staff Physician] - Disposition: HOME - Home Medications Comprehensive Discharge Medication List: Ambulatory Orders Sulfamethoxazole/Trimethoprim [Bactrim Ds -] 1 tab PO BID #14 tablet 10/15/16 This patient is new to me today: Yes Date on this admission: 10/15/16 Emergency Visit: Yes ED Registration Date: 10/13/16 Care time: The patient presented to the Emergency Department on the above date and was hospitalized for further evaluation of their emergent condition. Critical Care patient: No - Discharge Referral Referred to [facility] Med P.C.: No
--- NOTE | 2016-10-15 15:06 | PN ---
Progress Note (short form) - Note Progress Note: surgery pt seen and examined earlier today. no increase in size or flutuance. afebrile, wbc wnl leg- soft, same induration, no fluctuance. Pt has plans for discharge. can follow as outpt.
== END 2016-10-15 14:37 | disposition home or self-care (01) | DRG 383 ==
LOC: JERFT 17:32 → JER 17:32 → JERBED 22:11 → J7W 10-14 00:43
PROVIDERS: ADMIT Internal Medicine; ATTEND Internal Medicine
DX: L03.116 Cellulitis of left lower limb (principal); E66.9 Obesity, unspecified; Z68.35 Body mass index [BMI] 35.0-35.9, adult
CPT/HCPCS: 36415; 73700-TC-RT; 80048; 80053; 83605; 84703; 85025; 85610; 86850; 86900; 86901; 87040; 97116-GP; 97161-GP; 99283-25

== ENCOUNTER 2017-12-09 14:02 | Emergency (ER) | payer OTHER ==
[2017-12-09 14:12] VITALS: BP 118/72; PULSE 82; TEMP 98.9; BMI 31.6
[2017-12-09] MEDS ORDERED: AZITHROMYCIN 250 MG TABLET PO ONE (14:34)
--- NOTE | 2017-12-09 14:36 | PDOC ---
History of Present Illness - General Chief Complaint: Urinary Problem Stated Complaint: URINARY PROBLEM Time Seen by Provider: 12/09/17 14:29 - History of Present Illness Initial Comments: 12/09/17 14:35 32-year-old female requesting STD testing. She has declined HIV testing. She has no symptoms except lower back pain. She has no dysuria or discharge. No fevers. She has an IUD and is not concerned with . She takes Prozac for depression Past History - Past Medical History Allergies/Adverse Reactions: Allergies Allergy/AdvReac Type Severity Reaction Status Date / Time codeine Allergy Intermediate Vomiting Verified 12/09/17 14:12 Home Medications: Ambulatory Orders Sulfamethoxazole/Trimethoprim [Bactrim Ds -] 1 tab PO BID #14 tablet 12/09/17 Anemia: Yes Asthma: No Cancer: No Cardiac Disorders: No COPD: No Diabetes: No HTN: No Psychiatric Problems: Yes Seizures: No Thyroid Disease: No - Surgical History Cholecystectomy: Yes - Suicide/Smoking/Psychosocial Hx Smoking History: Never smoked Have you smoked in the past 12 months: No Number of Cigarettes Smoked Daily: 0 Cigars Per Day: 0 Hx Alcohol Use: No Drug/Substance Use Hx: No Substance Use Type: None Hx Substance Use Treatment: No Review of Systems - Review of Systems Musculoskeletal: Yes: Back Pain All Other Systems: Reviewed and Negative *Physical Exam - Vital Signs Last Vital Signs Temp Pulse Resp BP Pulse Ox 98.9 F 82 18 118/72 98 12/09/17 14:09 12/09/17 14:09 12/09/17 14:09 12/09/17 14:09 12/09/17 14:09 - Physical Exam Comments: HEAD: NC/AT EYES: Conjuntiva clear Ears: Canals and TM's normal NOSE: No d/c THROAT: Moist mucous membrances, oral pharanx clear, uvula midline NECK: Supple without adenopathy CARDIAC: S1 S2 LUNGS: CTA Full and Equal breath sounds ABDOMEN: Soft NT ND MS: Full ROM in all joints without edema NEUROLOGIC: No gross sensory or motor deficits, NVID SKIN: Normal color and temperature no lesions or rashes Health exam deferred Bar spine skin color and temperature are normal. Range of motion is slightly decreased with pain. She has 5 out of 5 strength in bilateral lower extremities and all areas without any gross sensorimotor deficits. Negative straight leg raise test bilaterally. She has mild right and left paralumbar musculature spasm. There is associated tenderness in the lumbar musculature 12/09/17 14:36 *DC/Admit/Observation/Transfer Diagnosis at time of Disposition: UTI (urinary tract infection), STD (female) - Discharge Dispostion Disposition: HOME Condition at time of disposition: Stable Decision to Admit order: No - Prescriptions Prescriptions: Sulfamethoxazole/Trimethoprim [Bactrim Ds -] 1 tab PO BID #14 tablet - Referrals Referrals: Tai Hopson [Non Staff, Medical] - - Patient Instructions Printed Discharge Instructions: Urinary Tract Infection, Facts About Sexually Transmitted Infections, How to Detect and Treat STDs, Chlamydia: The Silent STD Additional Instructions: You have a urinary tract infection. I given you a 7 day course of Bactrim. Return to the emergency room should symptoms worsen or go unresolved. He requested to be tested for gonorrhea and Chlamydia you have tested dose test results are not back yet however you were treated for gonorrhea and Chlamydia as well today. Return to the emergency room should he have any issues her test results should be back in a day or 2. We will call you with the results should they be positive. Also recommended a primary care physician few to follow-up with. You've declined HIV testing. - Post Discharge Activity
[2017-12-09] MEDS ORDERED: AZITHROMYCIN 250 MG TABLET ONE (14:37)
[2017-12-09 14:39] LABS: URINE APPEARANCE SLCLOUDY; URINE BILIRUBIN NEGATIVE (<2.0 mg/dL); URINE COLOR YELLOW; URINE GLUCOSE (UA) NEGATIVE (NEGATIVE); URINE KETONE NEGATIVE (NEGATIVE); URINE NITRITE NEGATIVE (NEGATIVE); URINE PROTEIN NEGATIVE (NEGATIVE)
[2017-12-09 14:41] LABS: HCG,QUALITATIVE URINE Negative; URINE LEUK ESTERASE 3+ (NEGATIVE)
[2017-12-09 15:21] LABS: EPI CELLS FEW /HPF (FEW); URINE BACTERIA RARE /hpf (NONE SEEN); URINE MUCUS FEW
== END 2017-12-09 15:55 | disposition home or self-care (01) ==
LOC: JERFT 14:02
DX: N39.0 Urinary tract infection, site not specified (principal); Z20.2 Contact with and (suspected) exposure to infections with a predominantly sexual mode of transmission; F32.9 Major depressive disorder, single episode, unspecified; Z97.5 Presence of (intrauterine) contraceptive device
CPT/HCPCS: 36415; 81003; 81015; 84703; 87086; 87491; 87591; 96372; 99281-25